=== PATIENT | male | born 1995 | race African-American/Black ===

== ENCOUNTER 2020-09-30 13:07 | Emergency (ER) | payer BC, SELFPAY ==
--- NOTE | ~2020-09-30 | XR_ITS ---
EXAMINATION: XR knee LT 3V DATE: 09/30/2020 13:37 INDICATION: Left knee laceration. TECHNIQUE: 3 views of left knee were obtained. COMPARISON: None. FINDINGS: Bone alignment is normal. No fracture. Joint spaces are well maintained. There is no knee j oint effusion. There is a laceration anterior to the patella. IMPRESSION: 1. No fracture or radiopaque foreign body. Reviewed, dictated and finalized at location A.
[2020-09-30 13:13] VITALS: BP 147/95; PULSE 116; RESP 20; TEMP 36.2; O2SAT 99
--- NOTE | 2020-09-30 13:31 | ED.WOUNDLAC ---
HPI - Wound/Laceration General Chief Complaint: Wound/Laceration Stated Complaint: left knee injury Time Seen by Provider: 09/30/20 13:20 Source: patient Mode of arrival: ambulatory Limitations: no limitations History of Present Illness HPI narrative: Patient is a 25 year old male who presents with laceration to left knee. He reports he was using chainsaw when it slipped hitting him in knee. Patient has laceration to left knee, bleeding controlled with dressing at this time. Patient reports full range of motion, denies numbness and tingling to leg. He denies significant medical history. He denies all other complaints at this time. Related Data Allergies Allergy/AdvReac Type Severity Reaction Status Date / Time No Known Allergies Allergy Unverified 09/30/20 13:16 Review of Systems Review of Systems: Narrative: CONSTITUTIONAL: Denies fever, chills, or sweats. EYES: Denies visual changes, redness, or discharge. ENT: Denies rhinorrhea, congestion, sore throat, or otalgia. CARDIOVASCULAR: Denies chest pain, palpitations, or edema. RESPIRATORY: Denies cough or dyspnea. GASTROINTESTINAL: Denies abdominal pain, nausea, vomiting, or diarrhea. GENITOURINARY: Denies dysuria or hematuria. SKIN: Laceration to the left knee MUSCULOSKELETAL: Denies back pain, joint pain, or myalgia. NEUROLOGIC: Denies headache, numbness, dizziness, or weakness. PSYCHIATRIC: Denies anxiety or depression. [facility] Past Medical History Medical History (Updated 09/30/20 @ 15:52 by ALEK Frias) No significant past medical history Surgical History Surgical History Status post labral repair of shoulder Family History Family History Other No significant family history Social History Social History (Updated 09/30/20 @ 13:40 by ALEK Frias) Smoking status: Current every day smoker Tobacco type: cigarettes Alcohol intake: never Substance use: current Substance use type: marijuana Other substance usage details: Hx of substance abuse in past, no narcotic meds per pt and fam. Comments At the time of signature, I have reviewed and agree with nursing past medical, surgical, social, and family history unless otherwise noted. Please see nursing chart for further information. There is no relevant family history pertinent to the presenting complaint. Exam Narrative: Exam Narrative: GENERAL: Well-appearing, well-nourished, and in no acute distress. HEAD: Normocephalic, atraumatic. EYES: EOMI. No redness or drainage. Conjunctiva are normal. ENT: Mucous membranes pink and moist. NECK: AROM. Supple. No lymphadenopathy. CHEST: No respiratory distress. Clear to auscultation. HEART: Regular rate and rhythm. MUSCULOSKELETAL: No bony tenderness. EXTREMITIES: Left knee full ROM with flexion and extension intact. Normal range of motion. No edema. SKIN: Approximate 4 cm laceration to left knee, subcutaneous tissue visible NEURO: No focal deficits. Alert and oriented x3. Gait steady. PSYCH: Normal affect. No signs of depression or anxiety. Course Vital Signs Vital signs: Vital Signs Temperature 36.2 C L 09/30/20 13:13 Pulse Rate 116 H 09/30/20 13:13 Respiratory Rate 09/30/20 13:13 Blood Pressure 147/95 H 09/30/20 13:13 Pulse Oximetry 99 09/30/20 13:13 Temperature 36.2 C L 09/30/20 13:13 Pulse Rate 116 H 09/30/20 13:13 Respiratory Rate 09/30/20 13:13 Blood Pressure 147/95 H 09/30/20 13:13 Pulse Oximetry 99 09/30/20 13:13 Reviewed. Patient has been instructed to follow-up with his PCP regarding his blood pressure. Procedures Laceration Laceration 1: Site: other (knee) Side (If applicable): left Size (cm): 4 Description: linear Depth: simple, single layer Amount of anesthesia used (mL): 7 Pre-repair: irrigated extensively and wou
[2020-09-30] MEDS: KETOROLAC 30 MG/ML VIAL (*BKC) IM (13:40)
--- NOTE | 2020-09-30 13:40 | PC.NURSE ---
ED techs at bedside for L knee wound irrigation, pt tolerating well
[2020-09-30] MEDS: TETANUS,DIPHTHERIA,AC PERTUSSIS ADULT (0.5 ML) BOOSTRIX IM (16:20)
== END 2020-09-30 16:37 | disposition home or self-care (01) ==
PROVIDERS: Emergency Provider Nurse Practitioner; PCP Family Medicine
DX: S81.012A Laceration without foreign body, left knee, initial encounter (principal); Z23 Encounter for immunization; F17.210 Nicotine dependence, cigarettes, uncomplicated; R03.0 Elevated blood-pressure reading, without diagnosis of hypertension; W29.3XXA Contact with powered garden and outdoor hand tools and machinery, initial encounter
CPT/HCPCS: 12032; 73562; 90471; 90715; 96372; 99283; J1885